=== PATIENT | male | born 1975 | race Caucasian/White ===

== ENCOUNTER 2021-11-06 21:27 | Emergency (ER) | payer OTHER ==
[~2021-11-06] VITALS: Ht 170.2 cm; Wt 79.8 kg
[2021-11-06 21:55] VITALS: BP 110/67
== END 2021-11-07 01:08 | disposition left against medical advice (07) ==
LOC: EMS 21:32
DX: Z53.21 Procedure and treatment not carried out due to patient leaving prior to being seen by health care provider (principal)

== ENCOUNTER 2022-03-10 22:03 | Emergency (ER) | payer OTHER ==
[~2022-03-10] VITALS: Ht 177.8 cm; Wt 78.6 kg
[2022-03-10 22:21] VITALS: BP 110/65
[2022-03-10 22:25] LABS: COVID AG,FIA SOURCE NASAL SWAB
[2022-03-10 22:43] LABS: INFLUENZA TYPE A NEGATIVE FOR TYPE A (NEGATIVE); INFLUENZA TYPE B NEGATIVE FOR TYPE B (NEGATIVE)
== END 2022-03-10 22:55 | disposition left against medical advice (07) ==
LOC: EMS 22:04
DX: Z53.21 Procedure and treatment not carried out due to patient leaving prior to being seen by health care provider (principal); Z20.822 Contact with and (suspected) exposure to COVID-19
CPT/HCPCS: 87804